=== PATIENT | male | born 1995 | race Caucasian/White ===

== ENCOUNTER 2021-06-30 15:30 | Emergency (ER) | payer OTHER, SELFPAY ==
--- NOTE | ~2021-06-30 | XR_ITS ---
EXAMINATION: X-RAY RIGHT ANKLE X-RAY RIGHT FOOT CLINICAL INFORMATION: Pain. COMPARISON: None. TECHNIQUE: 2 views of the right ankle and 3 views of the right foot were obtained. FINDINGS: There is asymmetric soft tissue thickening adjacent to the localizer marker within the lateral and anterior surface of the ankle. No evidence of radiopaque foreign bodies or subcutaneous air. No acute fractures or malalignment. The ankle mortise is congruent. XR/XR foot RT min 3V IMPRESSION: No acute fractures or malalignment.
--- NOTE | ~2021-06-30 | XR_ITS ---
EXAMINATION: X-RAY RIGHT ANKLE X-RAY RIGHT FOOT CLINICAL INFORMATION: Pain. COMPARISON: None. TECHNIQUE: 2 views of the right ankle and 3 views of the right foot were obtained. FINDINGS: There is asymmetric soft tissue thickening adjacent to the localizer marker within the lateral and anterior surface of the ankle. No evidence of radiopaque foreign bodies or subcutaneous air. No acute fractures or malalignment. The ankle mortise is congruent. XR/XR ankle RT min 3V IMPRESSION: No acute fractures or malalignment.
[2021-06-30 18:27] VITALS: BP 113/84; PULSE 94; RESP 16; TEMP 36.8; O2SAT 100
--- NOTE | 2021-06-30 20:00 | ED.LOWEXIN ---
HPI - Extremity Injury (Lower) General Chief Complaint: Extremity Injury, Lower Stated Complaint: r ankle inj at work Time Seen by Provider: 06/30/21 18:44 Source: patient and family Mode of arrival: ambulatory Limitations: no limitations History of Present Illness HPI Narrative: 26-year-old male presenting to the ED with complaints of right ankle pain/swelling/numbness sensation for the past 2 days after he was at work and he missed the last step his ankle twisted inward and since then he has been having severe pain when he steps or palpates the right ankle. He denies head injury loss of consciousness or any other injuries complaints or concerns at this time MD complaint: ankle injury and foot injury Onset (ago): day(s) (2) Type of Injury: inversion Place: work Severity: moderate Relieving factors: nothing Exacerbating factors: weight bearing, movement and palpation Context: other (He missed the last step and his ankle twisted) Associated symptoms: swelling, numbness, tingling and able to partially bear weight Other symptoms: none Related Data Previous Rx's Medication Instructions Recorded acetaminophen 300 mg-codeine 30 mg 1 tab PO Q8H PRN #14 tab 06/30/21 tablet acetaminophen 500 mg tablet 1,000 mg PO QID PRN #14 tab 06/30/21 (Tylenol Extra Strength) Allergies Allergy/AdvReac Type Severity Reaction Status Date / Time No Known Allergies Allergy Verified 06/30/21 18:33 Review of Systems Review of Systems: Constitutional : No Weight loss, No Fever, No Chills, No Night Sweats, No Fatigue, No Malaise ENT/Mouth : No Hearing loss, No Ear Pain, No Nasal Congestion, No Sinus Pain, No Hoarseness, No sore throat, No Rhinorrhea, No Swallowing Difficulty Eyes: No Eye Pain, No Swelling, No Redness, No Foreign Body, No Discharge, No Vision Changes Cardiovascular : No Chest Pain, No SOB, No Dyspnea on Exertion, No Orthopnea, No Edema, No Palpitations Respiratory : No Cough, No Sputum, No Wheezing, No Smoke Exposure, No Dyspnea Gastrointestinal : No Nausea, No Vomiting, No Diarrhea, No Constipation, No abdominal Pain, No Hematochezia, No Melena Genitourinary : no irregular bleeding, No Dysuria, No Urinary Frequency, No Hematuria, No Urinary Incontinence, No Urgency, No Flank Pain, No Urinary Flow Changes, No Hesitancy Musculoskeletal : + joint pain/swelling, No Myalgias Skin : No Skin Lesions, No rash Neuro : No Weakness, No Numbness, No Paresthesias, No Loss of Consciousness, No Dizziness, No Headache Psych : No Anxiety/Panic, No Depression, No SI/HI/AH/VH, No Social Issues, Heme/Lymph: No Bruising, No Bleeding,No Lymphadenopathy Endocrine : No Polyuria, No Polydipsia, No Temperature Intolerance Yes all other systems are reviewed and are negative [facility] Past Medical History Attestation statement: The following information was validated with the patient. Medical History No known health problems Social History Social History Advance Directives: No Advance Directives Information Provided: No Physical Exam Vital Signs: Vital Signs: Last Vital Signs Temp 98.3 F 06/30/21 18:27 Pulse 94 06/30/21 18:27 Resp 16 06/30/21 18:27 BP 113/84 06/30/21 18:27 Pulse Ox 100 06/30/21 18:27 BMI result Body Mass Index 0.0 vital signs have been reviewed as normal and appeared to be correct. Blood pressure normal Heart rate normal. Respiration rate normal. Temperature normal. Oxygen saturation normal. Appearance: Alert. Oriented X3. No acute distress. Head: Normal external exam. Normocephalic. Atraumatic. Eyes: PERRLA. EOMI. Conjunctiva and sclera normal. Eyelids normal. ENT: Pharynx normal. Uvula midline. Moist mucous membranes. Neck: Normal inspection. Neck supple. FROM. CVS: Normal heart rate and rhythm. Respiratory: No respiratory distress. Painless inspiration. Skin: Skin warm and dry. Normal skin color. Normal skin turgor. No rashes/lesions/lacerations noted. Extremities: Patient moderate tenderness palpation to the right ankle at the lateral malleolus with soft tissue swelling no obvious joint effusion or obvious ligamentous or tendon injury or obvious deformity or signs of infection. Achilles tendon is intact. Otherwise all other Extremities exhibit normal range of motion and nontender. Neuro: Oriented X 3. No motor deficit. No sensory deficit. Reflexes normal. Normal steady gait. No focal neuro deficits noted. Vascular: + radial pulses/+ 2 distal pedal pulses/+2 dorsalis pedis b/l. Normal cap refill. No cyanosis noted to upper extremity nails and lower extremity toes nails. Course Course Course Narrative: 26-year-old male presenting to the ED with complaints of right ankle pain/swelling/numbness sensation for the past 2 days after he was at work and he missed the last step his ankle twisted inward and since then he has been having severe pain when he steps or palpates the right ankle. He denies head injury loss of consciousness or any other injuries complaints or concerns at this time X-ray obtained and negative for any acute processes. Therefore will place in an Xavier wrap and crutches and treat symptomatic and instructed follow-up with Orthopedic as symptoms persist for longer than 1-2 weeks and follow up with [facility] before returning to work on full duty. Patient and significant other at bedside understand and agree this plan. MDM - Extremity Injury (Lower) Medical Records Attestation: I reviewed the patient's medical records. Imaging Data Right ankle/foot x-ray: Attestation: I personally reviewed and interpreted this imaging study as follows: Radiologist's impression: FINDINGS: There is asymmetric soft tissue thickening adjacent to the localizer marker within the lateral and anterior surface of the ankle. No evidence of radiopaque foreign bodies or subcutaneous air. No acute fractures or malalignment. The ankle mortise is congruent.? XR/XR foot RT min 3V IMPRESSION: No acute fractures or malalignment.? Procedures Orthopedic Splinting/Casting Injury #1: Side: right Lower Extremity Injury Location: ankle and foot Lower Extremity Immobilizer: Xavier wrap Other Orthopedic Equipment: crutches Discharge Plan Discharge Clinical Impression: Ankle sprain and strain, Work related injury Patient Disposition: Home, Self-Care Instructions: Ankle Sprain (ED), Crutch Instructions (ED), How to Use an Elastic Bandage (ED), Return to Work Instructions (ED), Cold Compress or Soak (ED) Prescriptions: New acetaminophen-codeine 300-30 mg tablet 1 tab PO Q8H PRN (Reason: pain) Qty: 14 RF: 0 acetaminophen [Tylenol Extra Strength] 500 mg tablet 1,000 mg PO QID PRN (Reason: fever or pain) Qty: 14 RF: 0 Referrals: [facility] [Provider Group] - 2 days Pierre Moncada MD [Physician] - 2 weeks (Call to make a follow-up appointment within the next 1-2 weeks if symptoms persist) Stand Alone Forms: Work/School Release Print Language: Congolese
[2021-06-30] MEDS: Ibuprofen 800 MG TABLET PO (20:21)
== END 2021-06-30 20:29 | disposition home or self-care (01) ==
PROVIDERS: Emergency Provider Emergency Medicine
DX: S93.401A Sprain of unspecified ligament of right ankle, initial encounter (principal); S96.911A Strain of unspecified muscle and tendon at ankle and foot level, right foot, initial encounter; X50.1XXA Overexertion from prolonged static or awkward postures, initial encounter; Y93.9 Activity, unspecified; Y92.9 Unspecified place or not applicable; Y99.0 Civilian activity done for income or pay
CPT/HCPCS: 73610; 73630; 99283; 99284